=== PATIENT | female | born 1975 | race Caucasian/White ===

== ENCOUNTER 2016-10-02 11:10 | Emergency (ER) | payer OTHER ==
[~2016-10-02] VITALS: Ht 170.2 cm; Wt 72.6 kg
[~2016-10-02 11:10] MED LIST: ALBU6.7H IH
[2016-10-02 11:46] VITALS: BP 96/60
--- NOTE | 2016-10-02 12:04 | PHYS DOC ---
Past History Past Medical History: Other Past Surgical History: Other Smoking: Non-smoker Alcohol Use: Rarely Drug Use: None Adult General Chief Complaint Chief Complaint: FLU SYMPTOM HPI HPI Patient is a 41 year old female who presents with nausea and vomiting. Patient states she woke in the middle of night with nausea and had several episodes of vomiting. no blood in the emesis. Patient complains of minimal abdominal cramping. No diarrhea. Patient denies any abdominal medical history. Patient states low-grade fevers and chills. No rash. Patient notes that her son had similar illness the end of last week. Patient did try one of her sons oral Zofran before arrival. Review of Systems Review of Systems Constitutional: Minimal fever or chills Eyes: Denies change in visual acuity, redness, or eye pain HENT: Denies nasal congestion or sore throat Respiratory: Denies cough or shortness of breath Cardiovascular: No chest pain or palpitations GI: Denies bloody stools or diarrhea. Positive abdominal pain, nausea, vomiting. : Denies dysuria or hematuria Musculoskeletal: Denies back pain or joint pain Integument: Denies rash or skin lesions Neurologic: Denies headache, focal weakness or sensory changes Endocrine: Denies polyuria or polydipsia Allergies Allergies Allergies Coded Allergies Type Severity Reaction Last Updated Verified No Known Drug Allergies 03/05/16 No Physical Exam Physical Exam Constitutional: Well developed, well nourished, mild acute distress, non-toxic appearance. HENT: Normocephalic, atraumatic, oropharynx moist, no oral exudates, nose normal. Eyes: PERRLA, EOMI, conjunctiva normal, no discharge. Cardiovascular:Heart rate regular rhythm, no murmur Lungs & Thorax: Bilateral breath sounds clear to auscultation Abdomen: Bowel sounds normal, soft, no tenderness, no masses, no pulsatile masses. Skin: Warm, dry, no erythema, no rash. Back: No tenderness, no CVA tenderness. Extremities: No tenderness, no cyanosis, no clubbing, no edema. Neurologic: Alert and oriented X 3, normal motor function, normal sensory function, no focal deficits noted. Psychologic: Affect normal, judgement normal, mood normal. Current Patient Data Vital Signs Vital Signs Date Time Temp Pulse Resp B/P Pulse Ox O2 Delivery O2 Flow Rate FiO2 10/02/16 11:46 98.5 71 20 97 Room Air EKG EKG [] Radiology/Procedures Radiology/Procedures [] Course & Med Decision Making Course & Med Decision Making Pertinent Labs and Imaging studies reviewed. (See chart for details) Repeat reevaluation of the patient at 12:47 PM: Patient feels significantly better is comfortable discharged home. I discussed clear liquid diet and advancing diet as tolerated with patient and spouse. Dragon Disclaimer Dragon Disclaimer This chart was dictated in whole or in part using Voice Recognition software in a busy, high-work load, and often noisy Emergency Department environment. It may contain unintended and wholly unrecognized errors or omissions. Departure Departure: Impression: Primary Impression: Nausea and vomiting Disposition: HOME, SELF-CARE Condition: IMPROVED Referrals: DEION CABALLERO (PCP) Patient Instructions: Nausea and Vomiting Scripts Ondansetron Hcl (Zofran)4 Mg Tablet1 Tab PO Q6HRS #20 TAB Prov:GERALD IBANEZ MD 10/02/16 Problem Qualifiers Primary Impression: Nausea and vomiting Vomiting type: unspecified Vomiting Intractability: non-intractable Qualified Code: R11.2 - Nausea with vomiting, unspecified GERALD IBANEZ MD Oct 02, 2016 12:04
[2016-10-02] MEDS ORDERED: IV NORMAL SALINE 1,000ML 1,000 ML IV ONE (12:30)
[2016-10-02] MEDS ORDERED: ONDANSETRON PF 4 MG/2 ML VIAL. IV ONE ×2 (12:30→13:20)
[2016-10-02 12:39] LABS: INFLUENZA A PATIENT NEGATIVE (NEGATIVE); INFLUENZA B PATIENT NEGATIVE (NEGATIVE)
[2016-10-02] MEDS ORDERED: ONDA4TAB7 PO (12:49)
== END 2016-10-02 13:20 | disposition home or self-care (01) ==
LOC: ER 11:10
DX: R11.2 Nausea with vomiting, unspecified (principal); R10.9 Unspecified abdominal pain; R50.9 Fever, unspecified
CPT/HCPCS: 87804; 96361; 96374; 96376; 99284; J2405; J7030